=== PATIENT | male | born 1965 | race Two or more races ===

== ENCOUNTER 2017-12-31 23:56 | Emergency (ER) | payer OTHER, BC ==
--- NOTE | 2018-01-01 01:27 | ER Document Report ---
ED ENT - General Chief Complaint: Difficulty Swallowing Stated Complaint: TROUBLE SWALLOWING Time Seen by Provider: 01/01/18 01:13 Mode of Arrival: Ambulatory Information source: Patient Notes: Patient had surgery on 12/16/2017 for an anterior cervical disc fusion of C5 and 6. Patient presents complaining of neck tenderness and swelling that he has had since surgery that worsened yesterday. Patient complains of a swollen lump within his incision to his neck. TRAVEL OUTSIDE OF THE [place] IN LAST 30 DAYS: No - HPI Onset: Yesterday Onset/Duration: Persistent Pain Level: 3 Location of pain: Neck Associated symptoms: Difficulty swallowing, Neck pain. denies: Chills, Congestion, Cough, Dizziness, Fever, Stiff neck Similar symptoms previously: No Recently seen / treated by doctor: No - Related Data Allergies/Adverse Reactions: No Known Allergies Allergy (Unverified 07/14/16 22:03) Past Medical History - General Information source: Patient - Social History Smoking Status: Never Smoker Frequency of alcohol use: None Drug Abuse: None Occupation: Retired Lives with: Family Family History: Reviewed & Not Pertinent, CAD - Past Medical History Cardiac Medical History: Denies: Hx Congestive Heart Failure, Hx DVT, Hx Heart Attack, Hx Hypercholesterolemia, Hx Hypertension, Hx Pulmonary Embolism Pulmonary Medical History: Reports: Hx Sleep Apnea Denies: Hx Asthma, Hx COPD EENT Medical History: Reports: Eyes - Glaucoma Neurological Medical History: Denies: Hx Seizures Endocrine Medical History: Denies: Hx Diabetes Mellitus Type 1, Hx Diabetes Mellitus Type 2, Hx Hyperthyroidism, Hx Hypothyroidism GI Medical History: Denies: Hx Cirrhosis, Hx Gastroesophageal Reflux Disease, Hx Hepatitis Musculoskeltal Medical History: Reports Other - Degenerative disc disease Skin Medical History: Reports Hx Eczema Psychiatric Medical History: Reports: Hx Depression Infectious Medical History: Denies: Hx Hepatitis Past Surgical History: Reports: Hx Orthopedic Surgery - left thumb, anterior cervical disc fusion of C 3 through 6 - Immunizations Hx Diphtheria, Pertussis, Tetanus Vaccination: No Review of Systems - Review of Systems Constitutional: denies: Fever, Recent illness EENT: Difficulty swallowing, Throat swelling Cardiovascular: No symptoms reported. denies: Chest pain Respiratory: No symptoms reported. denies: Cough, Short of breath Gastrointestinal: No symptoms reported. denies: Nausea, Vomiting Genitourinary: No symptoms reported Male Genitourinary: No symptoms reported Musculoskeletal: Neck pain. denies: Back pain Skin: No symptoms reported Hematologic/Lymphatic: No symptoms reported Neurological/Psychological: No symptoms reported Physical Exam - Vital signs Vitals: Temp Pulse Resp BP Pulse Ox 98.7 F 64 20 138/84 H 96 01/01/18 00:10 01/01/18 00:10 01/01/18 00:10 01/01/18 00:10 01/01/18 00:10 - General General appearance: Appears well, Alert In distress: None - HEENT Head: Normocephalic, Atraumatic Eyes: Normal Conjunctiva: Normal Nasal: Normal Mouth/Lips: Normal Mucous membranes: Normal Pharynx: Normal. No: Erythema, Tonsillar hypertrophy Neck: Other - Patient with firm nodule along left lateral aspect of anterior cervical discectomy incision, subtle fullness to left side of neck. Patient with posterior cervical tenderness Notes: Normal speech, patient managing oral secretions - Respiratory Respiratory status: No respiratory distress Chest status: Nontender Breath sounds: Normal Chest palpation: Normal - Cardiovascular Rhythm: Regular Heart sounds: S1 appreciated, S2 appreciated - Back Back: Normal - Extremities General upper extremity: Normal inspection, Normal strength General lower extremity: Normal inspection, Normal strength - Neurological Neuro grossly intact: Yes Cognition: Normal Kimberlee Coma Scale Eye Opening: Spontaneous Quincy Coma Scale Verbal: Oriented Quincy Coma Scale Motor: Obeys Commands Kimberlee Coma Scale Total: 15 - Psychological Associated symptoms: Normal affect, Normal mood - Skin Skin Temperature: Warm Skin Moisture: Dry Skin Color: Normal Course - Re-evaluation Re-evalutation: 01/01/18 04:[address] Teixeira regarding patient presentation, recommends consultation with patient's surgeon. Spoke with at the [facility]. Reviewed patient's diagnostic tests including CT scan report. Recommends starting patient on a Medrol Dosepak and having him follow-up in the clinic this week for recheck. Patient has been able to manage oral secretions and swallow food and liquids without difficulty. Patient nontoxic in appearance, stable vital signs without any leukocytosis. Patient given good return precautions. - Vital Signs Vital signs: Temp Pulse Resp BP Pulse Ox 98.7 F 64 20 138/84 H 96 01/01/18 00:10 01/01/18 00:10 01/01/18 00:10 01/01/18 00:10 01/01/18 00:10 - Laboratory Result Diagrams: 01/01/18 02:18 01/01/18 02:18 Laboratory results interpreted by me: 01/01/18 01/01/18 02:18 02:18 RBC 4.26 L Hgb 13.0 L Sodium 145.7 H Labs- Entire Visit 01/01/18 01/01/18 02:18 02:18 WBC 7.4 RBC 4.26 L Hgb 13.0 L Hct 38.1 MCV 89 MCH 30.5 MCHC 34.1 RDW 12.8 Plt Count 329 Seg Neutrophils % 50.4 Lymphocytes % 38.4 Monocytes % 8.6 Eosinophils % 2.0 Basophils % 0.6 Absolute Neutrophils 3.7 Absolute Lymphocytes 2.8 Absolute Monocytes 0.6 Absolute Eosinophils 0.1 Absolute Basophils 0.0 Sodium 145.7 H Potassium 3.8 Chloride 106 Carbon Dioxide 28 Anion Gap 12 BUN 16 Creatinine 0.78 Est GFR ( Amer) > 60 Est GFR (Non-Af Amer) > 60 Glucose 107 Calcium 9.0 - Diagnostic Test Radiology reviewed: Reports reviewed Discharge - Discharge Clinical Impression: Neck pain Condition: Stable Disposition: HOME, SELF-CARE Instructions: Steroid Medication Additional Instructions: Return immediately for any new or worsening symptoms Followup with your surgeon in the clinic this week, call Tuesday for an appointment Prescriptions: Methylprednisolone [Medrol Dosepack (4 mg/Tab) 21 Tab/Dosepak] 4 mg PO ASDIR PRN #21 tab.ds.[id number] PRN Reason: Referrals: [facility] [Provider Group] - Follow up as needed
[2018-01-01] MEDS ORDERED: ACETAMINOPHEN 325 MG TABLET PO ONE (02:24)
[2018-01-01 02:27] LABS: ABSOLUTE EOSINOPHILS # (AUTO) 0.1 10^3/uL (0.0-0.6); ABSOLUTE LYMPHOCYTES (AUTO) 2.8 10^3/uL (0.5-4.7); ABSOLUTE MONOCYTES (AUTO) 0.6 10^3/uL (0.1-1.4); ABSOLUTE NEUT (AUTO) 3.7 10^3/uL (1.7-8.2); BASOPHILS % (AUTO) 0.6 % (0-2); HEMATOCRIT 38.1 % (37.9-51.0); LYMPHOCYTES % (AUTO) 38.4 % (13-45); MEAN CORPUSCULAR HEMOGLOBIN 30.5 pg (27.0-33.4); MEAN CORPUSCULAR HGB CONC 34.1 g/dL (32.0-36.0); MEAN CORPUSCULAR VOLUME 89 fl (80-97); MONOCYTES % (AUTO) 8.6 % (3-13); PLATELET COUNT 329 10^3/uL (150-450); RED BLOOD COUNT 4.26 10^6/uL (4.35-5.55); RED CELL DISTRIBUTION WIDTH 12.8 % (11.5-14.0); SEGMENTED NEUTROPHILS % (AUTO) 50.4 % (42-78); TOTAL CELLS COUNTED % (AUTO) 100 %; WHITE BLOOD COUNT 7.4 10^3/uL (4.0-10.5)
[2018-01-01 02:38] LABS: ANION GAP 12 (5-19); BLOOD UREA NITROGEN 16 mg/dL (7-20); CARBON DIOXIDE 28 mmol/L (22-30); CHLORIDE 106 mmol/L (98-107); GLUCOSE 107 mg/dL (75-110); POTASSIUM 3.8 mmol/L (3.6-5.0); SODIUM 145.7 mmol/L (137-145)
--- NOTE | 2018-01-01 03:35 | RADIOLOGY REPORT (SQ) ---
EXAM DESCRIPTION: CT SOFT TISSUE NECK WITH CLINICAL HISTORY: Hx cerv disc fusion, swelling to neck COMPARISON: None available TECHNIQUE: Axial CT images of the neck soft tissues obtained following the uncomplicated intravenous administration of 75 mL Isovue-370 FINDINGS: Visualized orbits and globes are intact. No facial bone fractures identified. Paranasal sinuses are well aerated. No definite abnormalities of the intracranial contents identified. Abnormalities of the parotid or submandibular glands. No abnormalities of the thyroid gland. No abnormalities of the vasculature identified. The pharyngeal mucosal space, parapharyngeal space, and visceral space are unremarkable. No abnormalities of the buccal or safety sealer spaces. No definite cervical lymphadenopathy. No well-circumscribed fluid collection. ACDF at C3/4 through C5/6. Mild prominence of the soft tissues without well-circumscribed fluid collection. Visualized lung apices are clear. DLP: 588.30 mGy-cm IMPRESSION: 1. ACDF at C3-C6 with mild retropharyngeal/prevertebral soft tissue prominence. No well-circumscribed fluid collection or other abnormality identified. This exam was performed according to our departmental dose-optimization program, which includes automated exposure control, adjustment of the mA and/or kV according to patient size and/or use of iterative reconstruction technique.
[2018-01-01] MEDS ORDERED: HYDROCODONE/ACETAMINOPHEN 5-325 MG (6 TAB/ER DISP) PO PRN (04:03)
[2018-01-01] MEDS ORDERED: METHYLPREDNISOLONE 4 MG TABLET PO ONE (04:06)
[2018-01-01] MEDS ORDERED: METHYLPREDNISOLONE 4 MG TABLET ONE (04:27)
[2018-01-01 05:01] VITALS: BP 120/77
== END 2018-01-01 05:01 | disposition home or self-care (01) ==
LOC: ER 23:56
DX: M54.2 Cervicalgia (principal); R22.1 Localized swelling, mass and lump, neck; R13.10 Dysphagia, unspecified
CPT/HCPCS: 99283; 36415; 85025; 80048; 70491; J7509

== ENCOUNTER 2018-02-25 22:44 | Emergency (ER) | payer OTHER, BC ==
--- NOTE | 2018-02-26 00:01 | ER Document Report ---
ED Medical Screen (RME) - General Chief Complaint: Back Pain Stated Complaint: RACING HEART, BACK/HAND SPASM Time Seen by Provider: 02/25/18 23:54 Mode of Arrival: Ambulatory Information source: Patient Notes: Pt presents to the ED with c/o entire back spasm and left hand spasm earlier tonight. Reports no back spasm now and left hand is a little sore. Reports his left index finger and thumb had a spasm, is gone now, but worried it is his heart because it was his left hand. Family history of CAD. Mother with CHF in her 70's. Brothers with CAD. Pt denies CAD, HTN. Reports cervical surgery 9 weeks ago by Todd MEDELLIN. Rosie cp, sob, reports left shoulder tender. Denies f/v reports some nausea on the way here. Took [address] here. Reports he was working outside all day. Has not been drinking as much as he should. TRAVEL OUTSIDE OF THE [place] IN LAST 30 DAYS: No - Related Data Allergies/Adverse Reactions: No Known Allergies Allergy (Unverified 07/14/16 22:03) Past Medical History - Past Medical History Cardiac Medical History: Denies: Hx Congestive Heart Failure, Hx DVT, Hx Heart Attack, Hx Hypercholesterolemia, Hx Hypertension, Hx Pulmonary Embolism Pulmonary Medical History: Reports: Hx Sleep Apnea Denies: Hx Asthma, Hx COPD Neurological Medical History: Denies: Hx Seizures Endocrine Medical History: Denies: Hx Diabetes Mellitus Type 1, Hx Diabetes Mellitus Type 2, Hx Hyperthyroidism, Hx Hypothyroidism Renal/ Medical History: Denies: Hx Peritoneal Dialysis GI Medical History: Denies: Hx Cirrhosis, Hx Gastroesophageal Reflux Disease, Hx Hepatitis Skin Medical History: Reports Hx Eczema Psychiatric Medical History: Reports: Hx Depression Infectious Medical History: Denies: Hx Hepatitis Past Surgical History: Reports: Hx Orthopedic Surgery - left thumb, anterior cervical disc fusion of C 3 through 6 - Immunizations Hx Diphtheria, Pertussis, Tetanus Vaccination: No Physical Exam - Vital signs Vitals: Temp Pulse Resp BP Pulse Ox 98.7 F 73 16 122/82 94 02/25/18 23:00 02/25/18 23:00 02/25/18 23:00 02/25/18 23:00 02/25/18 23:00 Course - Vital Signs Vital signs: Temp Pulse Resp BP Pulse Ox 98.7 F 73 16 122/82 94 02/25/18 23:00 02/25/18 23:00 02/25/18 23:00 02/25/18 23:00 02/25/18 23:00
[2018-02-26 01:12] LABS: APPEARANCE,URINE CLEAR; BILIRUBIN,URINE NEGATIVE (NEGATIVE); COLOR,URINE YELLOW; GLUCOSE, URINE NEGATIVE (NEGATIVE); KETONES,URINE TRACE mg/dL (NEGATIVE); LEUKOCYTE ESTERASE,URINE NEGATIVE (NEGATIVE); NITRITE,URINE NEGATIVE (NEGATIVE); PROTEIN,URINE NEGATIVE (NEGATIVE); URINE SPECIFIC GRAVITY 1.033; UROBILINOGEN,URINE NEGATIVE mg/dL (<2.0)
--- NOTE | 2018-02-26 03:16 | ER Document Report ---
ED General - General Chief Complaint: Back Pain Stated Complaint: RACING HEART, BACK/HAND SPASM Time Seen by Provider: 02/25/18 23:54 Mode of Arrival: Ambulatory Notes: Patient is a 52-year-old male who presents with back spasm and left hand spasm. He is concerned it might be his heart because it is left hand with spasming. He is no longer having back or hand spasming. He had a brief left foot spasm right before I walked into the room, but this also resolved. He has Flexeril at home, but did not take any before coming into the ER. He has been working outside in the heat. Denies chest pain, shortness of breath, nausea, vomiting, saddle anesthesia, change in bowel or bladder or injury. TRAVEL OUTSIDE OF THE [place] IN LAST 30 DAYS: No - Related Data Allergies/Adverse Reactions: No Known Allergies Allergy (Unverified 07/14/16 22:03) Past Medical History - General Information source: Patient - Social History Smoking Status: Unknown if Ever Smoked Family History: Reviewed & Not Pertinent, CAD - Past Medical History Cardiac Medical History: Denies: Hx Congestive Heart Failure, Hx DVT, Hx Heart Attack, Hx Hypercholesterolemia, Hx Hypertension, Hx Pulmonary Embolism Pulmonary Medical History: Reports: Hx Sleep Apnea Denies: Hx Asthma, Hx COPD Neurological Medical History: Denies: Hx Seizures Endocrine Medical History: Denies: Hx Diabetes Mellitus Type 1, Hx Diabetes Mellitus Type 2, Hx Hyperthyroidism, Hx Hypothyroidism Renal/ Medical History: Denies: Hx Peritoneal Dialysis GI Medical History: Denies: Hx Cirrhosis, Hx Gastroesophageal Reflux Disease, Hx Hepatitis Skin Medical History: Reports Hx Eczema Psychiatric Medical History: Reports: Hx Depression Infectious Medical History: Denies: Hx Hepatitis Past Surgical History: Reports: Hx Orthopedic Surgery - left thumb, anterior cervical disc fusion of C 3 through 6 - Immunizations Hx Diphtheria, Pertussis, Tetanus Vaccination: No Review of Systems - Review of Systems Notes: REVIEW OF SYSTEMS: CONSTITUTIONAL: -fevers, -chills EENT: -eye pain, -difficulty swallowing, -nasal congestion CARDIOVASCULAR: -chest pain, -syncope. RESPIRATORY: -cough, -SOB GASTROINTESTINAL: -abdominal pain, -nausea, -vomiting, -diarrhea GENITOURINARY: -dysuria, -hematuria MUSCULOSKELETAL: +back spasm, -neck pain, +left hand spasming, +left foot spasming SKIN: -rash or skin lesions. HEMATOLOGIC: -easy bruising or bleeding. LYMPHATIC: -swollen, enlarged glands. NEUROLOGICAL: -altered mental status or loss of consciousness, -headache, - neurologic symptoms PSYCHIATRIC: -anxiety, -depression. ALL OTHER SYSTEMS REVIEWED AND NEGATIVE. Physical Exam - Vital signs Vitals: Temp Pulse Resp BP Pulse Ox 98.7 F 73 16 122/82 94 02/25/18 23:00 02/25/18 23:00 02/25/18 23:00 02/25/18 23:00 02/25/18 23:00 - Notes Notes: PHYSICAL EXAMINATION: GENERAL: Well-appearing, well-nourished and in no acute distress. HEAD: Atraumatic, normocephalic. EYES: Pupils equal round and reactive to light, extraocular movements intact, sclera anicteric, conjunctiva are normal. ENT: nares patent, oropharynx clear without exudates. Moist mucous membranes. NECK: Normal range of motion, supple without lymphadenopathy LUNGS: Breath sounds clear to auscultation bilaterally and equal. No wheezes rales or rhonchi. HEART: Regular rate and rhythm without murmurs ABDOMEN: Soft, nontender, normoactive bowel sounds. No guarding, no rebound. No masses appreciated. EXTREMITIES: Normal range of motion, no pitting or edema. No cyanosis. NEUROLOGICAL: Cranial nerves grossly intact. Normal speech, normal gait. Normal sensory and motor exams. PSYCH: Normal mood, normal affect. SKIN: Warm, Dry, normal turgor, no rashes or lesions noted. Course - Re-evaluation Re-evalutation: Patient appears very well. He is having intermittent extremity spasming that will quickly resolve. He has Flexeril at home, but he did not take any. Instructed him to hydrate and take NSAIDs and Flexeril for any spasming. No signs of severe dehydration and his EKG does not show evidence of ACS. - Vital Signs Vital signs: Temp Pulse Resp BP Pulse Ox 98.7 F 73 16 122/82 94 02/25/18 23:00 02/25/18 23:00 02/25/18 23:00 02/25/18 23:00 02/25/18 23:00 - Laboratory Laboratory results interpreted by ne: 02/26/18 00:17 Urine Ketones TRACE H Urine Ascorbic Acid 40 H - EKG Interpretation by Pr EKG shows normal: Sinus rhythm, Bronson, Intervals, QRS Complexes, ST-T Waves Discharge - Discharge Clinical Impression: Myalgia Condition: Stable Disposition: HOME, SELF-CARE Additional Instructions: Drink plenty of water and Gatorade. He may take Motrin and Flexeril for any muscle spasms. Follow-up with your primary care physician. Myalagia (Muscle Pain) Myalgia is pain in the muscles. We use the word myalgia to describe muscle pain where there's no history of injury, no known muscle disease, and the muscles are normal to examination. Myalgias can be a symptom of an acute illness , such as influenza, hepatitis, or any viral illness, especially with fever. Sometimes the muscle pain comes before any other symptoms. Myalgia can also be an early symptom of inflammatory muscle disease, such as lupus. If myalgia is accompanied by an acute illness that explains the muscle pain , then no further testing needs to be done. When there's no clear reason for the pain, tests may be done to see if there's an inflammatory or other disease of the muscles. The usual treatment for myalgias is anti-inflammatory medication, such as ibuprofen. Muscle aches may be soothed with a heating pad or hot compress. If muscles remain painful for more than a few days, you'll need testing and followup. Return if a muscle becomes swollen, red, or severely painful.
[2018-02-26 07:06] VITALS: BP 131/89
--- NOTE | 2018-02-26 19:11 | EKG REPORT ---
SEVERITY:- ABNORMAL ECG - SINUS RHYTHM LAD, CONSIDER LEFT ANTERIOR FASCICULAR BLOCK LEFT VENTRICULAR HYPERTROPHY : Confirmed by: Carol Zimmerman MD 26-Feb-2018 19:10:31
== END 2018-02-26 03:50 | disposition home or self-care (01) ==
LOC: ER 22:44
DX: M79.1 Myalgia (principal); R25.2 Cramp and spasm
CPT/HCPCS: 81001; 93005; 93010; 99283

== ENCOUNTER 2019-10-03 23:37 | Emergency (ER) | payer OTHER, BC ==
--- NOTE | 2019-10-04 04:57 | RADIOLOGY REPORT (SQ) ---
EXAM DESCRIPTION: X-RAY CHEST TWO VIEWS CLINICAL HISTORY: 54 years, Male, CHEST PAIN COMPARISON: None. FINDINGS: PA and lateral chest radiographs were performed at 0420 hours on 10/04/2019. The lungs are well expanded and clear. The costophrenic sulci are sharp. The cardiac silhouette, hilar regions, trachea, soft tissues and bony structures are unremarkable aside from degenerative changes. IMPRESSION: No acute cardiopulmonary disease.
[2019-10-04 05:48] LABS: ABSOLUTE EOSINOPHILS # (AUTO) 0.1 10^3/uL (0.0-0.6); ABSOLUTE LYMPHOCYTES (AUTO) 2.6 10^3/uL (0.5-4.7); ABSOLUTE MONOCYTES (AUTO) 0.6 10^3/uL (0.1-1.4); BASOPHILS % (AUTO) 0.7 % (0-2); EOSINOPHILS % (AUTO) 1.8 % (0-6); HEMATOCRIT 41.7 % (37.9-51.0); HEMOGLOBIN 14.5 g/dL (13.5-17.0); LYMPHOCYTES % (AUTO) 41.3 % (13-45); MEAN CORPUSCULAR HEMOGLOBIN 31.3 pg (27.0-33.4); MEAN CORPUSCULAR HGB CONC 34.7 g/dL (32.0-36.0); MEAN CORPUSCULAR VOLUME 90 fl (80-97); MONOCYTES % (AUTO) 8.8 % (3-13); PLATELET COUNT 280 10^3/uL (150-450); RED BLOOD COUNT 4.62 10^6/uL (4.35-5.55); RED CELL DISTRIBUTION WIDTH 12.7 % (11.5-14.0); SEGMENTED NEUTROPHILS % (AUTO) 47.4 % (42-78); TOTAL CELLS COUNTED % (AUTO) 100 %; WHITE BLOOD COUNT 6.4 10^3/uL (4.0-10.5)
[2019-10-04 06:14] LABS: ALBUMIN 4.3 g/dL (3.5-5.0); ALKALINE PHOSPHATASE 76 U/L (38-126); ANION GAP 11 (5-19); ASPARTATE AMINO TRANSFERASE 28 U/L (17-59); BILIRUBIN,DIRECT 0.2 mg/dL (0.0-0.4); BILIRUBIN,TOTAL 0.8 mg/dL (0.2-1.3); BLOOD UREA NITROGEN 16 mg/dL (7-20); CARBON DIOXIDE 26 mmol/L (22-30); CHLORIDE 103 mmol/L (98-107); CREATINE KINASE 261 U/L (55-170); GLUCOSE 101 mg/dL (75-110)
[2019-10-04 06:24] LABS: CREATINE KINASE MB 1.28 ng/mL (<4.55)
[2019-10-04 06:27] LABS: TROPONIN I < 0.012 ng/mL
[2019-10-04 09:44] VITALS: BP 127/90
--- NOTE | 2019-10-04 19:38 | EKG REPORT ---
SEVERITY:- ABNORMAL ECG - SINUS RHYTHM NONSPECIFIC IVCD WITH LAD LEFT VENTRICULAR HYPERTROPHY : Confirmed by: Carol Zimmerman MD 04-Oct-2019 19:37:30
--- NOTE | 2019-10-08 08:37 | ER Document Report ---
Entered by BAILEY CRAWLEY SCRIBE 10/04/19 0812 Acting as scribe for:BENITO HERNANDEZ MD ED General - General Chief Complaint: Chest Pain Stated Complaint: CHEST PAIN,LEFT ARM PAIN Time Seen by Provider: 10/04/19 07:28 Primary Care Provider: CHARLENE AGUILAR MD [ACTIVE STAFF] - 10/04/19 Information source: Patient Notes: 54 year old male presents to the emergency department with sharp chest pain that radiates down his left arm which began 2-3 days ago. Patient reports "flutter feeling" for the past two weeks. Patient describes the "flutter feeling" as on and off for a second or two periodically throughout the day. Patient reports having chills, but denies associated lightheadedness, shortness of breath or waking up due to the fluttering. TRAVEL OUTSIDE OF THE [place] IN LAST 30 DAYS: No - Related Data Allergies/Adverse Reactions: No Known Allergies Allergy (Verified 10/04/19 01:18) Past Medical History - General Information source: Patient - Social History Smoking Status: Never Smoker Cigarette use (# per day): No Chew tobacco use (# tins/day): No Family History: Reviewed & Not Pertinent, CAD Patient has suicidal ideation: No Patient has homicidal ideation: No Pulmonary Medical History: Reports: Hx Sleep Apnea Skin Medical History: Reports Hx Eczema Psychiatric Medical History: Reports: Hx Depression Past Surgical History: Reports: Hx Orthopedic Surgery - left thumb, anterior cervical disc fusion of C 3 through 6 - Immunizations Hx Diphtheria, Pertussis, Tetanus Vaccination: No Review of Systems - Review of Systems Constitutional: No symptoms reported EENT: No symptoms reported Cardiovascular: See HPI, Chest pain, Palpitations Respiratory: No symptoms reported Gastrointestinal: No symptoms reported Genitourinary: No symptoms reported Male Genitourinary: No symptoms reported Musculoskeletal: No symptoms reported Skin: No symptoms reported Hematologic/Lymphatic: No symptoms reported Neurological/Psychological: No symptoms reported -: Yes All other systems reviewed and negative Physical Exam - Vital signs Vitals: Temp Pulse Resp BP Pulse Ox 98.5 F 70 18 132/84 H 95 10/04/19 00:29 10/04/19 00:29 10/04/19 00:29 10/04/19 00:29 10/04/19 00:29 - Notes Notes: Physical Exam: General: Alert, appears well. HEENT: Normocephalic. Atraumatic. PERRL. Extraocular movements intact. Oropharynx clear. Neck: Supple. Non-tender. Respiratory: No respiratory distress. Clear and equal breath sounds bilaterally. Cardiovascular: Regular rate and rhythm. Abdominal: Normal Inspection. Non-tender. No distension. Normal Bowel Sounds. Back: No gross abnormalities. Extremities: Moves all four extremities. Upper extremities: Normal ROM. Left pectoralis and shoulder tenderness to palpation. Lower extremities: Normal inspection. No edema. Normal ROM. Neurological: Normal cognition. AAOx4. Normal speech. Psychological: Normal affect. Normal Mood. Skin: Warm. Dry. Normal color. Course - Vital Signs Vital signs: Temp Pulse Resp BP Pulse Ox 97.5 F 70 15 127/90 H 97 10/04/19 08:42 10/04/19 00:29 10/04/19 08:42 10/04/19 08:42 10/04/19 08:42 - Laboratory Result Diagrams: 10/04/19 05:30 10/04/19 05:30 Laboratory results interpreted by me: 10/04/19 05:30 Creatine Kinase 261 H - Diagnostic Test Radiology reviewed: Image reviewed, Reports reviewed - Chest x-ray does not show acute cardiopulmonary process. - EKG Interpretation by Sd EKG shows normal: Sinus rhythm, Bryant, Intervals, QRS Complexes, ST-T Waves Rate: Normal - 69 Rhythm: NSR Bryant/QRS: Left axis deviation, IVCD Voltage: Consistant with LVH When compared to previous EKG there are: No significant change Discharge - Discharge Clinical Impression: Palpitations, Chest wall pain Condition: Stable Disposition: HOME, SELF-CARE Additional Instructions: Palpitations (Irregular/Rapid Heartrate): Irregular or rapid heartbeat is called "palpitation." To diagnose the cause of palpitation, we have to "catch it in the act" with an EKG. Sinus Tachycardia: This is a rapid (but NORMAL) rhythm that can be due to fever, pain, anxiety, lack of sleep, over-exertion, or drugs. Cold medications, caffeine, and diet pills are particularly likely to cause tachycardia. Usually, all that's required is rest, reassurance, and avoiding caffeine, alcohol, nicotine, and unnecessary medicines. Paroxysmal Atrial Tachycardia (PAT): This abnormally rapid heartbeat is caused by a "short circuit" in the electrical system of the heart. It is not dangerous, unless other heart disease is present. These attacks of PAT may occur occasionally for years. Medication is available for treatment. Paroxysmal Atrial Fibrillation or Atrial Flutter: This is irregular electrical activity in the upper heart chamber. These abnormal rhythms often occur with valve disease or in hearts damaged by hardening of the arteries. Th lina rhythms usually require further testing, for example a cardiac echo. Premature Beats: Extra beats occur more commonly after caffeine, nicotine, alcohol, cold pills, diet pills. Emotional stress or fatigue also provoke them. Extra beats are only dangerous when heart disease is present. They usually need no treatment. If they're frequent, or if evidence of heart disease develops, medication can be given to suppress them. If we were unable to "catch" the palpitations on EKG, you should try to get an EKG immediately if the symptoms begin again. Contact the physician at once if you develop persistent lightheadedness, shortness of breath, chest pain, or swelling of the ankles. The way you describe the fluttering sensation in your chest, this may likely be premature atrial contractions or PACs. Reducing or avoiding caffeine and getting plenty of rest will frequently reduce the PACs if that is what is occurring. Follow-up with Dr. Aguilar for further evaluation and possible Holter monitoring. Call the office today for an appointment. RETURN TO THE EMERGENCY ROOM IF ANY NEW OR WORSENING SYMPTOMS. Referrals: CHARLENE AGUILAR MD [ACTIVE STAFF] - 10/04/19 Scribe Attestation: 10/04/19 08:14 I personally performed the services described in the documentation, reviewed and edited the documentation which was dictated to the scribe in my presence, and it accurately records my words and actions. I personally performed the services described in the documentation, reviewed and edited the documentation which was dictated to the scribe in my presence, and it accurately records my words and actions.
== END 2019-10-04 08:30 | disposition home or self-care (01) ==
LOC: ER 23:37
DX: R07.89 Other chest pain (principal); R00.2 Palpitations; M79.602 Pain in left arm
CPT/HCPCS: 36415; 71046; 80053; 82550; 82553; 84484; 85025; 93005; 93010; 99285